=== PATIENT | male | born 1955 | race Caucasian/White ===

== ENCOUNTER 2017-02-06 23:06 | Observation (INO) | payer OTHER ==
[~2017-02-06] VITALS: Ht 172.7 cm; Wt 112.7 kg
[~2017-02-06 23:06] MED LIST: HYOS0.1281 SL; ONDA4TAB9 PO
[2017-02-06 23:08] VITALS: BP 135/81; PULSE 56; RESP 18; O2SAT 97
--- NOTE | 2017-02-06 23:20 | ED.REPORT ---
HPI-Abd Pain M 40 and Over Date of Service Feb 06, 2017 ED Provider: Charbel Hollis DO Pt is a 61 year old male with a history of HTN who presents to the ED complaining of upper abdominal pain onset 18:00 tonight. He c/o associated nausea, vomiting, and cold sweats. The pt denies denies diarrhea and cough. He reports that he has taken Pepcid and 7up without relief. Nursing Notes Stated Complaint: VOMITING,STOMACH PAIN Chief Complaint: Male Abdominal Pain Nursing Notes Reviewed: Yes Allergies: Coded Allergies: No Known Allergies (Unverified , 02/06/17) Scheduled Hyoscyamine SL (Levsin SL) 0.125 Mg Tab.subl 0.125 MG SL TID Scheduled PRN Ondansetron ODT (Zofran ODT) 4 Mg Tablet 4 MG PO Q4H PRN PRN For Nausea General Time Seen by MD: 23:19 Chief Complaint Abdominal pain Hx Obtained From: Patient Arrived By: Walk-in Sudden in Onset?: No Onset Occurred: 5 - 8 hours ago Symptom Duration: Since onset Location: : Abdomen upper Quality: Painful Severity: Current: Moderate Severity: Maximum: Moderate Recent Healthcare: No recent doctor visit, No recent hospitalization Similar Sx Previous: Yes Past Medical History Past Medical History Reports: Hypertension Past Surgical History Denies Smoking History Never Smoker Social History Alcohol Use: Denies alcohol use Ambulatory Status Independent Review of Systems + Cold sweats Constitutional: Denies: Fever Respiratory: Denies: Non-productive cough, Shortness of breath GI: Reports: Abdominal pain, Nausea, Vomiting, Denies: Diarrhea Complete sys rev & neg: except as marked. Skin: Reports Diaphoresis Physical Exam Initial Vital Signs Vital Signs (First) Date Time Temp Pulse Resp B/P Pulse Ox O2 Delivery O2 Flow Rate FiO2 02/06/17 23:08 36 56 18 135/81 97 Room Air Initial VS: Reviewed ENT: Mucous membranes moist, Conjunctiva normal, No scleral icterus Neck: Supple, Full range of motion Extremities: Vascular intact, Neuro intact Neurologic: Alert, Oriented, Nonfocal Psychiatric: Mood/affect normal, Behavior normal, Normal thought content General/Constitutional: Awake, Alert, Cooperative Distress / Hydration: Positive: Distress moderate Respiratory / Chest: Atraumatic, Breath sounds NL, Breath sounds = bilat Cardiovascular: Heart rate NL, Regular rhythm, Heart sounds NL Abdomen: Atraumatic, Soft, No guarding, No rebound Tenderness/Guarding/Rebound: Positive: Tender diffuse Back: Atraumatic, Full range of motion Skin: Atraumatic, Color NL, Warm, Dry, Intact Well perfused. Interpretation & Diagnostics Lab Results Interpretation Result Diagram: 02/06/17 2355 02/06/17 2355 Test 02/06/17 23:54 02/06/17 23:55 Lactic Acid Level 1.3mmol/L (0.4-2.0) White Blood Count 12.3th/mm3 (3.8-10.1) Red Blood Count 4.61mil/mm3 (4.40-5.80) Hemoglobin 14.9g/dL (13.8-17.2) Hematocrit 43.0% (41.0-50.0) Mean Corpuscular Volume 93.3fL (81-100) Mean Corpuscular Hemoglobin 32.3pg (27.0-35.0) Mean Corpuscular Hemoglobin Concent 34.7% (32.0-37.0) Red Cell Distribution Width 12.1% (12.3-15.4) Platelet Count 180bil/L (150-400) Neutrophils (%) (Auto) 79.5% (40-74) Lymphocytes (%) (Auto) 14.2% (14-46) Monocytes (%) (Auto) 4.8% (4-12) Eosinophils (%) (Auto) 1.1% (0-5) Basophils (%) (Auto) 0.2% (0-3) Prothrombin Time 10.9sec (8.1-12.5) Prothromb Time International Ratio 1.02ratio Sodium Level 138mEq/L (134-144) Potassium Level 4.0mEq/L (3.5-5.2) Chloride Level 102mEq/L (97-108) Carbon Dioxide Level 21mmol/L (18-29) Blood Urea Nitrogen 21mg/dL (8-27) Creatinine 0.87mg/dL (0.76-1.27) Estimat Glomerular Filtration Rate 95mL/min (>59) Glucose Level 159mg/dL (60-99) Calcium Level 9.6mg/dL (8.5-10.1) Magnesium Level 2.0mg/dL (1.6-2.6) Total Bilirubin 0.6mg/dL (0.0-1.2) Aspartate Amino Transf (AST/SGOT) 16U/L (0-50) Alanine Aminotransferase (ALT/SGPT) 15U/L (0-44) Alkaline Phosphatase 53U/L (25-160) Troponin T < 0.010ug/L (0.0-0.011) Total Protein 7.5g/dL (6.4-8.4) Albumin 4.2g/dL (3.4-5.0) Lipase 17U/L (13-60) ECG Interpretation ECG Interpretation: Sinus rhythm with a rate of 66. Probable left atrial enlargement. Time: 00:04 Interpreted by: ED physician CBC Interpretation WBC elevated BMP / CMP Interpretation BMP/CMP normal Cardiac / Vascular Interp Troponin normal X-Ray Abdominal Interpretation Interpretation / Wet Read by: Interpret - ED physician CT Abd / Pelvis Interpretation CT scan shows bowel wall thickening of the splenic flexure consistent with mild colitis. There is also fluid within the small bowel most likely representing enteritis. No obvious signs of bowel obstruction. Study type: Abdominal CT IV contrast Interpretation / Wet Read by: Interpret - Radiologist NL CT Abdomen Findings: No mass, No free fluid, No free air, No bowel obstruction Re-Eval/Medical Decision Med Decision/Clinical Course At 2:03 AM Mr. Soria is still rather miserable. He is having ongoing nausea and intermittent waves of pain. His abdomen is soft and much less tender but he does not feel comfortable being discharged home. He has a leukocytosis and a CT scan worrisome for colitis and possible enteritis. As such I will admit him to the hospital for close observation I think if he produces diarrhea which she tested for C. difficile otherwise clear liquid diet fluid resuscitation and symptomatic care. Consulted with our hospitalist and he was accepted for admission Source of Hx: Old records Time of Eval: 01:59 )( Re-Eval Abdomen: Soft Re-Evaluation/Progress Note: Pt rechecked. He has ongoing pain and wants to be admitted. Informed pt of plan for admission. Pt understands and agrees with plan for admission. All questions addressed. Consultation : Referral / Consult Name: Lyle Ty MD Consulted With: Hospitalist Call Returned at: 02:00 [employer] Supervisor: Will see patient, Agrees with eval, Agrees with plan, Accepts admit Counseled Regarding: Diagnosis, Lab results, Need for admission Discharge & Departure Shift Change Sign-Out Response to Therapy: Improved Primary Impression: Colitis Additional Impressions: Intractable abdominal pain Vomiting Vomiting type: unspecified Vomiting Intractability: unspecified Nausea presence: with nausea Qualified Code: R11.2 - Nausea with vomiting, unspecified Disposition: ADMITTED TO HOSPITAL Vital Signs - All Vital Signs Date Time Temp Pulse Resp B/P Pulse Ox O2 Delivery O2 Flow Rate FiO2 02/06/17 23:08 36 56 18 135/81 97 Room Air )( All Prior VS Reviewed: Yes Condition: Stable Referrals: Shahid Nguyen MD (PCP) Scribe Attestation Portions of this note were transcribed by Whitney Russo. I, Dr. Hollis personally performed the history, physical exam and medical decision-making; I reviewed and confirmed the accuracy of the information in the transcribed note. Signed by: Amanda Almanza, 02/07/17 and 01:05 copies to: Shahid Nguyen MD, Todd P DO Feb 06, 2017 23:20 Whitney Lai Feb 06, 2017 23:29
[2017-02-06] MEDS ORDERED: 0.9% Sodium Chloride 1,000 ML IV ONE (23:22)
[2017-02-06] MEDS ORDERED: Ondansetron 2 mg/mL 2 mL Inj IVPUSH ONE (23:25)
[2017-02-06] MEDS ORDERED: Ondansetron 2 mg/mL 2 mL Inj IVPUSH PRN (23:25)
[2017-02-06] MEDS ORDERED: Pantoprazole 4 mg/mL 10 mL Inj IVPUSH ONE (23:25)
[2017-02-06] MEDS: HYDROmorphone 1 mg/mL Inj IVPUSH PRN (23:59)
[2017-02-07 00:18] LABS: BASOPHILS % (AUTO) 0.2 % (0-3); EOSINOPHILS % (AUTO) 1.1 % (0-5); MONOCYTES % (AUTO) 4.8 % (4-12); Mean Corpuscular Hemoglobin 32.3 pg (27.0-35.0); Mean Corpuscular Volume 93.3 fL (81-100); NEUTROPHILS % (AUTO) 79.5 % (40-74); Platelet Count 180 bil/L (150-400)
[2017-02-07 00:38] LABS: INR 1.02 ratio
[2017-02-07] MEDS: HYDROmorphone 1 mg/mL Inj IVPUSH PRN (01:29)
[2017-02-07] MEDS ORDERED: Alum-Mag Hydrox-Simeth 30 mL Suspension PO PRN (02:35)
[2017-02-07] MEDS ORDERED: Polyethylene Glycol (PEG) 17 Gm Powder PO PRN (02:35)
[2017-02-07] MEDS ORDERED: HYDROmorphone 0.5 mg/0.5 mL iSecure Syringe IVPUSH PRN (02:35)
[2017-02-07] MEDS ORDERED: Ondansetron 2 mg/mL 2 mL Inj IVPUSH PRN (02:35)
[2017-02-07] MEDS: Heparin 5,000 Unit/mL Inj SUBQ SCH ×3 (02:35→17:18)
--- NOTE | 2017-02-07 02:50 | PCM.HPMED ---
Subjective Date of Service Feb 07, 2017 Primary Provider: Admitting Physician: Lyle Ty MD Primary Care Physician: Shahid Nguyen MD Attending Physician: Lyle Ty MD Chief Complaint: Acute abdominal pain, nausea vomiting History of Present Illness: Tito Soria Junior is an obese 61-year-old gentleman with history of hypertension , currently not on any medications, presents with abrupt onset of epigastric abdominal pain around 1800 yesterday evening. They complain of nausea, vomiting 1 without hematochezia, chills and cold sweats. He denies any diarrhea cough, history of same, contacts with similar symptoms. He is suspicious that his lunch may be the cause of his symptoms which was roast pork , however no one else has had it has had symptoms. He attempted to take Pepcid , and drinks 7-Up did not offer any relief. Setting was the abdominal pain worsening that prompted him to come to the emergency department. He is anorexic for dinner. Denies any rashes, constipation, last bowel movement was earlier today which he describes as normal. No recent antibiotics Vitals in the emergency department were temperature 36 Celsius, heart rate 56, respirations 18, blood pressure 135/81, 97 percent on room air Mild leukocytosis, 12.3. Blood glucose 159 EKG: Rate 66, sinus rhythm, normal axis, QTC 446, no signs of acute ischemia or infarct, no AV conduction delay CT scan was performed of his abdomen and was concerning for colitis and possible enteritis, collapse of his colon is demonstrated at his splenic flexure , and no stool or gas visualized distal to it. Findings were discussed with the patient and ultimately said he feels safer coming into the hospital as he was frightened that he had abdominal pain and was unsure what happened if he were to go back home. He is given IV Dilaudid in the emergency department which improved his abdominal pain symptoms. Review of Systems: A comprehensive review of systems was conducted with the patient and found to be negative except as above in the history of presenting illness. Allergies Coded Allergies: No Known Allergies (Unverified , 02/06/17) Home Medications Denies any medications PMH History of hypertension, says he no longer has it Obesity Surgical History Tonsillectomy in childhood Family History States he did not know his parents well enough to know their medical history Has brothers and sisters but they do not discuss their health. Social History Occupation: "retired from the [employer]" Hx Alcohol Use: No Hx Substance Use: No Smoking Status: Never Smoker Living Arrangement: with Family Exam Vital Signs Vital Sign - Last Date Time Temp Pulse Resp B/P Pulse Ox O2 Delivery O2 Flow Rate FiO2 02/06/17 23:08 36 56 18 135/81 97 Room Air Intake and Output 02/06/17 02/06/17 02/07/17 Cumulative From/Thru 15:00 23:00 07:00 02/06/17 23:08 - 02/06/17 23:59 Intake Total 1000 ml 1000 ml Balance 1000 ml 1000 ml Intake IV Total 1000 ml 1000 ml Exam General: Laying in bed, no apparent distress. Pleasant affect HEENT: Normocephalic, atraumatic, EOMI grossly, pupils 2 mm fixed, mucous membranes moist, poor dentition, neck supple without lymphadenopathy, conjunctiva pink. Cardiovascular: Regular rate and rhythm, no clicks murmurs rubs, peripheral pulses 2/4 equal bilaterally Pulmonary: Clear to auscultation bilaterally, no W/R/R. Abdominal: Soft to palpation, bowel sounds present 4, no hepatosplenomegaly. Negative rebound. Small area of ecchymosis 2 inches superior to umbilicus, mild tenderness to epigastrium and left upper quadrant, no Cle[place] Gaffney or [place] sign, negative CVA tenderness. Abdomen is rotund dullness to percussion left quadrants. Extremities: No edema appreciated. No tenderness, asymmetry. Neuro: Neurologically grossly intact, strength is equal bilaterally upper and lower extremities. Cranial nerves II-12 grossly intact. Patellar reflexes 1/4 equal bilaterally MSK: Able to move extremities on his own volition, strength 5 out of 5 equal bilaterally to upper and lower extremities. Lab and Diagnostics Result Diagram: 02/06/17 2355 02/06/17 2355 X-Rays, CTs and MRIs Abdominal pelvis CT performed 02/06/2017 CT scan shows bowel wall thickening of the splenic flexure consistent with mild colitis. There is also fluid within the small bowel most likely representing enteritis. No obvious signs of bowel obstruction. [facility] and emergency physician interpretation 12-lead ECG EKG: Rate 66, sinus rhythm, normal axis, QTC 446, no signs of acute ischemia or infarct, no AV conduction delay Assessment & Plan Mr. Soria Edward 61-year-old gentleman with history of hypertension, obesity, presents with acute abdominal pain, nausea and vomiting, radiographic evidence of colitis and enteritis. Acute colitis and enteritis, present on admission, evaluation ongoing. -As evidenced on abdominal pelvis CT, leukocytosis with left shift. -Lactic acid normal, lipase negative. -Pain management with IV hydromorphone, oral Tylenol -If bowel movement is loose or developing diarrhea, test for C. difficile toxin -Clear liquids diet -Monitor for signs/symptoms of bowel obstruction -currently euvolemic, IV fluids when necessary for signs of dehydration, PO challenge in the morning. -Reevaluate CBC CMP tomorrow morning Elevated blood glucose, presumed chronic, does not on admission -Serum glucose 159 after not eating since roughly 6 PM, nearly 6 hours postprandial. -Evaluate A1c for diabetes Elevated blood pressure POA. Stable -135/81, placed in the pre-hypertensive range, stated history of hypertension. -We will continue to monitor Chronic Obesity, BMI 37, POA -Dietitian consultation Bowel regimen as indicated in Pain management hydromorphone IV, Tylenol by mouth DVT prophylaxis with subcutaneous heparin Patient admitted under inpatient status with expected length of stay <2 midnights for severity of present symptoms, complexities of treatment plan and risk for adverse events Pain Evaluation: Adequate Pain Control GI Prophylaxis: Not indicated VTE Prophylaxis: Sub-Q Heparin (Unfractionated) Resuscitation Status: CPR: Attempt Resuscitation Attending Statement The patient was seen and examined together with Dr. Mckeon on 02/07 and I agree with the history, exam and plan as outlined in the note above. Kendall Vazquez DO Feb 07, 2017 02:50 Lyle Ty MD Feb 07, 2017 19:32
[2017-02-07 02:56] VITALS: BP 152/98; PULSE 68; RESP 18; O2SAT 97
[2017-02-07 03:08] VITALS: BP 150/87; PULSE 64; RESP 20; O2SAT 96
--- NOTE | 2017-02-07 03:42 | NUR ---
Arrival to unit Patient arrived to floor at 0300 from ED via gurney. Patient A&OX3 and pleasant. Able to ambulate via SBA to the bathroom without troubles. Complains of 8/10 abdominal pain. Denies CP, SOB, N/V. Admission complete. Pt states only medication he takes is a multivitamin, but unable to verify name/dose; will share this with day shift so one can be ordered by MD. Will continue to monitor and continue Q1 hour checks. Addendum: 02/07/17 at 0348 by MUSHTAQ CASTRO RN Lab called to clarify lab order dates. Contacted hospitalist and able to clarify lab draws for this am 02/07/17.
[2017-02-07 03:44] LABS: APPEARANCE,URINE CLEAR (CLEAR,HAZY); COLOR,URINE YELLOW (YELLOW); OCCULT BLOOD,URINE NEGATIVE (NEGATIVE); UROBILINOGEN,URINE NORMAL (NORMAL)
[2017-02-07 04:43] VITALS: BP 131/77; PULSE 64; RESP 20; O2SAT 98
[2017-02-07 06:04] LABS: BASOPHILS % (AUTO) 0.2 % (0-3); EOSINOPHILS % (AUTO) 0.2 % (0-5); MONOCYTES % (AUTO) 6.1 % (4-12); Mean Corpuscular Hemoglobin 31.9 pg (27.0-35.0); Mean Corpuscular Volume 94.3 fL (81-100); NEUTROPHILS % (AUTO) 81.7 % (40-74); Platelet Count 179 bil/L (150-400)
--- NOTE | 2017-02-07 08:33 | DRSVH ---
PROCEDURE: CT ABDOMEN AND PELVIS WITH CONTRAST ([id number]) INDICATIONS: 61-year-old male with diffuse severe pain and vomiting. TECHNIQUE: After the administration of intravenous contrast, 5 mm thick sections acquired from the diaphragm to the symphysis. 5 mm coronal and sagittal reformats were acquired. For radiation dose reduction, the following was used: automated exposure control, adjustment of mA and/or kV according to patient siz e. COMPARISON: None. FINDINGS: Image quality: Excellent. ABDOMEN: Lung bases: Lung bases are clear. Heart size is normal. Solid organs: Liver and spleen are normal in size and enhancement. Gallbladder is normal. Biliary system is non dilated. Pancreas enhances normally. There is fatty infiltration in pancreatic head a n ossific process. No adrenal nodules. Kidneys demonstrate normal size and enhancement, without hydr onephrosis. There is a 3 cm simple appearing exophytic cyst in the inferior pole left kidney. Peritoneum and bowel: Stomach is mildly distended and filled with fluid. Bowel loops demonstrate nor mal wall thickness and caliber. There are scattered colonic diverticula. No active diverticulitis. A ppendix is normal. No free fluid or air. Nodes and vessels: No retroperitoneal or mesenteric adenopathy by size criteria. Aorta and inferior vena cava are normal in size. Miscellaneous: No ventral hernias. PELVIS: Genitourinary: Bladder wall thickness is normal. Miscellaneous: No inguinal adenopathy. Bilateral fat containing inguinal hernias. Bones: There is grade 1 anterolisthesis of L4 over L5. No suspicious bony lesions. No vertebral bod y compression fractures. IMPRESSION: 1. Fluid-filled mildly distended stomach. This finding is nonspecific. There is no small bowel obstru ction. 2. Diverticulosis. No active diverticulitis. 3. Normal appendix. 4. Fatty infiltration in pancreatic head. Please correlate with pancreatic enzymes. 5. A 3 cm simple appearing left renal cyst. Dictated by: Stacie Melchor M.D. on 02/07/2017 at 8:25 Approved by: Stacie Melchor M.D. on 02/07/2017 at 8:32
[2017-02-07] MEDS ORDERED: MULT1CAP33 PO (09:05)
[2017-02-07 09:43] VITALS: BP 119/77; PULSE 66; RESP 18; O2SAT 96
[2017-02-07 13:26] VITALS: BP 117/75; PULSE 81; RESP 16; O2SAT 99
--- NOTE | 2017-02-07 16:26 | NUR ---
Social Work- Screening/ Readiness for Discharge Data: EMR reviewed. Pt is a 61 year old male admitted 02/07/17 for intractable abdominal pain, colitis, vomiting per H&P. Pt's insurance is [employer]. Pt's PCP is Shahid Nguyen MD. Pt's NOK is Lorna Esteban [phone]. Per chart review, pt resides in [facility] with his where he is independent at baseline. Pt has no DPOA, refused information at admission. Pt is anticipated to discharge home with to transport via POV, SW will continue to follow. Assessment: Pt who is independent at baseline. Plan: Pt is independent at baseline. Pt is anticipated to discharge home with to transport via POV, SW will continue to follow. DEREK Sanchez
--- NOTE | 2017-02-07 16:42 | PCM.PNMED ---
Subjective Date of Service Feb 07, 2017 Subjective Patient is feeling better today. States his nausea has resolved but still has lower abdominal cramping. He is concerned about his not taking ehr lactulose. SAys they did not expect to get admitted thus, she did not bring her meds. Exam Vital Signs Vital Sign - Last Date Time Temp Pulse Resp B/P Pulse Ox O2 Delivery O2 Flow Rate FiO2 02/07/17 13:26 36.8 81 16 117/75 99 Room Air Intake and Output 02/06/17 02/06/17 02/07/17 Cumulative From/Thru 15:00 23:00 07:00 02/06/17 23:08 - 02/07/17 05:34 Intake Total 1000 ml 1000 ml Output Total 400 ml 400 ml Balance 600 ml 600 ml Intake Oral 0 ml 0 ml IV Total 1000 ml 1000 ml Output Urine Total 400 ml 400 ml # Bowel Movements 0 0 Exam General: Laying in bed, no apparent distress. Pleasant affect HEENT: Normocephalic, atraumatic, EOMI grossly, mucous membranes moist, poor dentition, conjunctiva pink. Cardiovascular: Regular rate and rhythm, no clicks murmurs rubs Pulmonary: Clear to auscultation bilaterally, no wheezes or crackles Abdominal:, bowel sounds present 4, no hepatosplenomegaly. Negative rebound. tenderness to palpation of lower abdomen. Abdomen is rotund dullness to percussion left quadrants. Extremities: No edema appreciated. No tenderness, asymmetry. Neuro: Neurologically grossly intact psych: Negative for anxiety IVs and Medications Medications Reviewed: Medications were reviewed in detail Lab and Diagnostics Result Diagram: 02/07/17 0530 02/07/17 0530 X-Rays, CTs and MRIs Abdominal pelvis CT performed 02/06/2017 CT scan shows bowel wall thickening of the splenic flexure consistent with mild colitis. There is also fluid within the small bowel most likely representing enteritis. No obvious signs of bowel obstruction. [facility] and emergency physician interpretation formal read: IMPRESSION: 1. Fluid-filled mildly distended stomach. This finding is nonspecific. There is no small bowel obstruction. 2. Diverticulosis. No active diverticulitis. 3. Normal appendix. 4. Fatty infiltration in pancreatic head. Please correlate with pancreatic enzymes. 5. A 3 cm simple appearing left renal cyst. Dictated by: Stacie Melchor M.D. on 02/07/2017 at 8:25 Approved by: Stacie Melchor M.D. on 02/07/2017 at 8:32 12-lead ECG EKG: Rate 66, sinus rhythm, normal axis, QTC 446, no signs of acute ischemia or infarct, no AV conduction delay Assessment & Plan Mr. Yang Leon 61-year-old gentleman with history of hypertension, obesity, presents with acute abdominal pain, nausea and vomiting, radiographic evidence of colitis and enteritis. Acute colitis and enteritis, present on admission: Started after eating pot roast -As evidenced on abdominal pelvis CT, leukocytosis with left shift. -Lactic acid normal, lipase negative. -Pain management with IV morphine, oral Tylenol -If bowel movement is loose or developing diarrhea, test for C. difficile toxin -Diet is advanced to full liquids -Monitor for signs/symptoms of bowel obstruction -Reevaluate CBC CMP tomorrow morning -I have discussed with him the possibility of pain returning if he starts eating and does not tolerate the diet. He chose to stay tonight because he is afraid pain willc ome back. -- He stated his nephew can likely bring his 's medication to the hospital. Elevated blood glucose, presumed chronic, does not on admission -Serum glucose 159 after not eating since roughly 6 PM, nearly 6 hours postprandial. -Evaluate A1c for diabetes Elevated blood pressure POA. Stable -135/81, placed in the pre-hypertensive range, stated history of hypertension. -We will continue to monitor Chronic Obesity, BMI 37, POA -Dietitian consultation Bowel regimen as indicated in Pain management hydromorphone IV, Tylenol by mouth DVT prophylaxis with subcutaneous heparin Patient admitted under inpatient status with expected length of stay <2 midnights for severity of present symptoms, complexities of treatment plan and risk for adverse events Pain Evaluation: Adequate Pain Control GI Prophylaxis: Not indicated VTE Prophylaxis: Sub-Q Heparin (Unfractionated) VTE Mechanical Devices: Intermittant Pneumatic CD Resuscitation Status: CPR: Attempt Resuscitation Time spent 25 min Samantha iWseman DO Feb 07, 2017 16:42
--- NOTE | 2017-02-07 18:13 | NUR ---
Asking about discharge Pt has been getting anxious about going home. He is more concerned about his missing her meds at this time. Pt feels like he is just fine and "probably just ate something bad" MD is aware. Pt agrees to stay tonight and be discharged tomorrow.
[2017-02-07 20:18] VITALS: BP 127/79; PULSE 68; RESP 18; O2SAT 99
[2017-02-08] MEDS: Heparin 5,000 Unit/mL Inj SUBQ SCH ×2 (01:07→08:03)
[2017-02-08 05:39] LABS: Mean Corpuscular Hemoglobin 32.6 pg (27.0-35.0); Mean Corpuscular Volume 93.6 fL (81-100)
[2017-02-08 05:52] VITALS: BP 135/83; PULSE 68; RESP 20; O2SAT 98
[2017-02-08 07:44] VITALS: BP 144/85; PULSE 73; RESP 18; O2SAT 96
--- NOTE | 2017-02-08 09:35 | PCM.DIMED ---
Discharge Instructions Date of Service Feb 08, 2017 Dates of Hospitalization Feb 07, 2017 at 02:33 Discharge Diagnosis Discharge Diagnosis Enterocolitis due to food intolerance Diet Discharge Diet: No restrictions Activity Discharge Activity: No restrictions Call your provider Call your provider for: Fever or Chills, Shortness of breath, Bleeding, Chest pain, Vomitting, Excessive diarrhea, Weakness (unilateral), Other Patient Instructions Follow-up plan Please se e your PCP in 2 weeks Samantha Wiseman DO Feb 08, 2017 07:37
--- NOTE | 2017-02-08 09:42 | PCM.DC.MED ---
Discharge Summary Date of Service Feb 08, 2017 Dates of Hospitalization Date of Hospital Admission Feb 07, 2017 at 02:33 Date of Discharge: Feb 08, 2017 Providers: Admitting Physician: Lyle Ty MD Primary Care Physician: Shahid Nguyen MD Attending Physician: Lyle Ty MD Diagnosis at Time of Discharge Diagnosis at Time of Discharge Enterocolitis due to food intolerance Consultations None Procedures XRay, CTs & MRIs Abdominal pelvis CT performed 02/06/2017 CT scan shows bowel wall thickening of the splenic flexure consistent with mild colitis. There is also fluid within the small bowel most likely representing enteritis. No obvious signs of bowel obstruction. [facility] and emergency physician interpretation formal read: IMPRESSION: 1. Fluid-filled mildly distended stomach. This finding is nonspecific. There is no small bowel obstruction. 2. Diverticulosis. No active diverticulitis. 3. Normal appendix. 4. Fatty infiltration in pancreatic head. Please correlate with pancreatic enzymes. 5. A 3 cm simple appearing left renal cyst. Dictated by: Stacie Melchor M.D. on 02/07/2017 at 8:25 Approved by: Stacie Melchor M.D. on 02/07/2017 at 8:32 ECG 12 Lead EKG: Rate 66, sinus rhythm, normal axis, QTC 446, no signs of acute ischemia or infarct, no AV conduction delay Brief History Tito Soria Junior is an obese 61-year-old gentleman with history of hypertension , currently not on any medications, presents with abrupt onset of epigastric abdominal pain around 1800 yesterday evening. They complain of nausea, vomiting 1 without hematochezia, chills and cold sweats. He denies any diarrhea cough, history of same, contacts with similar symptoms. He is suspicious that his lunch may be the cause of his symptoms which was roast pork , however no one else has had it has had symptoms. He attempted to take Pepcid , and drinks 7-Up did not offer any relief. Setting was the abdominal pain worsening that prompted him to come to the emergency department. He is anorexic for dinner. Denies any rashes, constipation, last bowel movement was earlier today which he describes as normal. No recent antibiotics Vitals in the emergency department were temperature 36 Celsius, heart rate 56, respirations 18, blood pressure 135/81, 97 percent on room air Mild leukocytosis, 12.3. Blood glucose 159 EKG: Rate 66, sinus rhythm, normal axis, QTC 446, no signs of acute ischemia or infarct, no AV conduction delay CT scan was performed of his abdomen and was concerning for colitis and possible enteritis, collapse of his colon is demonstrated at his splenic flexure , and no stool or gas visualized distal to it. Findings were discussed with the patient and ultimately said he feels safer coming into the hospital as he was frightened that he had abdominal pain and was unsure what happened if he were to go back home. He is given IV Dilaudid in the emergency department which improved his abdominal pain symptoms. Hospital Course Mr. Yang Leon 61-year-old gentleman with history of hypertension, obesity, presents with acute abdominal pain, nausea and vomiting, radiographic evidence of colitis and enteritis. Acute colitis and enteritis, present on admission: Started after eating pot roast -As evidenced on abdominal pelvis CT, leukocytosis with left shift: non-sp fluid per formal read -Lactic acid normal, lipase negative. -Pain management with IV morphine, oral Tylenol: Not needing much pain medication -Monitor for signs/symptoms of bowel obstruction: Patient is not nauseated, tolerating diet -I have discussed with him the possibility of pain returning if he starts eating and does not tolerate the diet. He chose to stay on 02/07 because he is afraid pain will come back. -He stated his nephew can likely bring his 's medication to the hospital. -On the date of discharge, pt is feeling better, not needing pain medication, tolerating normal diet. Elevated blood glucose, presumed chronic, DM 2 r/o -Serum glucose 159 after not eating since roughly 6 PM, nearly 6 hours postprandial. -Evaluate A1c for diabetes:reviewed, non-diabetic A1c<6.5 Elevated blood pressure POA. Stable, not currently meet HTN dx -135/81, placed in the pre-hypertensive range, stated history of hypertension. -We will continue to monitor -- We request that the PCP follows up on this Chronic Obesity, BMI 37, POA -Dietitian consultation DVT prophylaxis with subcutaneous heparin Patient admitted under inpatient status with expected length of stay <2 midnights for severity of present symptoms, complexities of treatment plan and risk for adverse events Exam Vital Signs (Last) Date Time Temp Pulse Resp B/P Pulse Ox O2 Delivery O2 Flow Rate FiO2 02/08/17 07:44 36.7 73 18 144/85 96 Room Air Exam General: Laying in bed, no apparent distress. Pleasant affect HEENT: Normocephalic, atraumatic, EOMI grossly, mucous membranes moist, poor dentition, conjunctiva pink. Cardiovascular: Regular rate and rhythm, no clicks murmurs rubs Pulmonary: Clear to auscultation bilaterally, no wheezes or crackles Abdominal:, bowel sounds present 4, no hepatosplenomegaly. Negative rebound. Non-tender to palpation of abdomen. Extremities: No edema appreciated. No tenderness, asymmetry. Neuro: Neurologically grossly intact psych: Negative for anxiety Test 02/06/17 23:54 02/06/17 23:55 02/07/17 03:20 02/07/17 05:30 Lactic Acid Level 1.3mmol/L (0.4-2.0) Prothrombin Time 10.9sec (8.1-12.5) Prothromb Time International Ratio 1.02ratio Hemoglobin A1c 5.5% (4.8-5.6) Magnesium Level 2.0mg/dL (1.6-2.6) Troponin T < 0.010ug/L (0.0-0.011) Lipase 17U/L (13-60) Urine Color Yellow (YELLOW) Urine Appearance Clear (CLEAR,HAZY) Urine pH 5.0 (5.0-8.0) Urine Specific [place] 1.056 (1.003-1.035) Urine Protein Negativemg/dL (NEG,TRACE) Urine Glucose (UA) Negativemg/dL (NEGATIVE) Urine Ketones Negativemg/dL (NEGATIVE) Urine Occult Blood Negative (NEGATIVE) Urine Nitrite Negative (NEGATIVE) Urine Bilirubin Negative (NEGATIVE) Urine Urobilinogen Normalmg/dL (NORMAL) Urine Leukocyte Esterase Negative (NEGATIVE) Urine RBC 0-2/hpf (0-2) Urine WBC 0-5/hpf (0-5) Urine Epithelial Cells Occasional/hpf (NONE-MOD) Urine Crystals None seen (NONE SEEN) Urine Bacteria None/hpf (NONE-FEW) Urine Hyaline Casts None/lpf (NONE) Urine Granular Casts None seen (NONE SEEN) Urine Waxy Casts None seen (NONE SEEN) Urine Red Blood Cell Casts None seen (NONE SEEN) Urine White Blood Cell Casts None seen (NONE SEEN) Urine Mucus Present (None Seen) Urine Trichomonas None seen (NONE SEEN) Urine Yeast None (NONE SEEN) Urine Culture Reflexed Not indicated Neutrophils (%) (Auto) 81.7% (40-74) Lymphocytes (%) (Auto) 11.7% (14-46) Monocytes (%) (Auto) 6.1% (4-12) Eosinophils (%) (Auto) 0.2% (0-5) Basophils (%) (Auto) 0.2% (0-3) Total Bilirubin 0.9mg/dL (0.0-1.2) Aspartate Amino Transf (AST/SGOT) 22U/L (0-50) Alanine Aminotransferase (ALT/SGPT) 21U/L (0-44) Alkaline Phosphatase 52U/L (25-160) Total Protein 6.8g/dL (6.4-8.4) Albumin 4.0g/dL (3.4-5.0) Triglycerides Level 38mg/dL (0-149) Cholesterol Level 146mg/dL (100-199) LDL Cholesterol, Calculated 87.400mg/dL (0-99) VLDL Cholesterol 7.600mg/dL HDL Cholesterol 51mg/dL (>39) Cholesterol/HDL Ratio 2.86 (0.0-4.4) Test 02/08/17 04:50 White Blood Count 8.0th/mm3 (3.8-10.1) Red Blood Count 4.38mil/mm3 (4.40-5.80) Hemoglobin 14.3g/dL (13.8-17.2) Hematocrit 41.0% (41.0-50.0) Mean Corpuscular Volume 93.6fL (81-100) Mean Corpuscular Hemoglobin 32.6pg (27.0-35.0) Mean Corpuscular Hemoglobin Concent 34.9% (32.0-37.0) Red Cell Distribution Width 12.3% (12.3-15.4) Platelet Count 157bil/L (150-400) Sodium Level 138mEq/L (134-144) Potassium Level 3.9mEq/L (3.5-5.2) Chloride Level 104mEq/L (97-108) Carbon Dioxide Level 24mmol/L (18-29) Blood Urea Nitrogen 11mg/dL (8-27) Creatinine 0.68mg/dL (0.76-1.27) Estimat Glomerular Filtration Rate 126mL/min (>59) Glucose Level 113mg/dL (60-99) Calcium Level 9.5mg/dL (8.5-10.1) Discharge Medications As needed oxyCODONE-Acetaminophen 5-325 mg (oxyCODONE-Acetaminophen 5-325 mg) 1 Each Tablet 1 TAB PO Q6H PRN PRN For Pain Prescribed by: BEATA ZAPATA MD Miscellaneous Medications Multivitamin (Multivitamins) 1 Each Capsule 1 EACH PO (Reported) Followup Plan Follow-up plan Please se e your PCP in 2 weeks Discharge Diet: No restrictions Discharge Activity: No restrictions Time spent > 30 min Samantha Wiseman DO Feb 08, 2017 09:42
--- NOTE | 2017-02-08 11:04 | NUR ---
Social Work- Discharge Data: EMR reviewed. Pt is a 61 year old male admitted 02/07/17 for intractable abdominal pain, colitis, vomiting per H&P. Pt's discharge orders are active. SW met with pt at bedside regarding discharge, pt is agreeable to discharge. Pt states that his will transport him home. Pt denies any questions or concerns related to discharge. Pt confirmed he will discharge home with to transport via POV. Assessment: Pt who is independent at baseline. Plan: Pt is independent at baseline. Pt to discharge home with to transport via POV. Juany Sanders, [employer]
--- NOTE | 2017-02-08 13:32 | NUR ---
Status MD notified that pt tolerated general diet lunch without n/v or pain. Ate 75%. Stable and w/o complaints at this time.
--- NOTE | 2017-02-08 14:05 | NUR ---
Discharge Pt dc'd ambulatory with at 1404. All discharge paperwork and instructions reviewed and pt verbalized understanding. All belongings with pt. IV dc'd w/o complication.
[2017-02-09] MEDS ORDERED: OXYC1TAB24 PO (08:21)
== END 2017-02-08 14:04 | disposition home or self-care (01) ==
LOC: SED 23:06 → OSC 02-07 02:33 → INTOOBSV 02-07 02:33
PROVIDERS: ADMIT Hospitalist; ATTEND Hospitalist
DX: K52.9 Noninfective gastroenteritis and colitis, unspecified (principal); K90.49 Malabsorption due to intolerance, not elsewhere classified; R73.9 Hyperglycemia, unspecified; R11.2 Nausea with vomiting, unspecified; E66.9 Obesity, unspecified; R10.13 Epigastric pain; I10 Essential (primary) hypertension; Z68.37 Body mass index [BMI] 37.0-37.9, adult
CPT/HCPCS: 36415; 74177; 80048; 80053; 80061; 81000; 83036; 83605; 83690; 83735; 84484; 85025; 85027; 85610; 93005; 96361; 96374; 96375; 96376; 99285; G0378; J1170; J1644; J2405; J7030; Q9967

== ENCOUNTER 2017-02-09 03:21 | Emergency (ER) | payer OTHER ==
[~2017-02-09] VITALS: Ht 172.7 cm; Wt 111.4 kg
[~2017-02-09 03:21] MED LIST changes: -HYOS0.1281 SL; +MULT1CAP33 PO; -ONDA4TAB9 PO
[2017-02-09 03:26] VITALS: BP 134/97; PULSE 74; RESP 18; O2SAT 98
--- NOTE | 2017-02-09 03:41 | ED.REPORT ---
HPI-Abd Pain M 40 and Over Date of Service Feb 09, 2017 ED Provider: Dr. Schreiber Pt is a 61 year old male with a hx of HTN presenting to the ED complaining of severe abdominal pain and nausea onset last night. Pt was discharged from the hospital yesterday with colitis. Associated symptoms include nausea and abdominal distention. Denies diarrhea, constipation, vomiting, or any other symptoms at this time. Nursing Notes Stated Complaint: ABDOMINAL PAIN, NAUSEA Chief Complaint: Male Abdominal Pain Nursing Notes Reviewed: Yes Allergies: Coded Allergies: No Known Allergies (Unverified , 02/06/17) Miscellaneous Medications Multivitamin (Multivitamins) 1 Each Capsule 1 EACH PO General Time Seen by MD: 03:41 Chief Complaint Abdominal pain Hx Obtained From: Patient Arrived By: Walk-in Sudden in Onset?: No Onset Occurred: Yesterday Symptom Duration: Since onset Progression since Onset: Constant Location: : Diffuse Quality: Painful Severity: Current: Severe Severity: Maximum: Severe Recent Healthcare: Recent doctor visit, Recent hospitalization Similar Sx Previous: Yes Past Medical History Past Medical History Reports: Hypertension Past Surgical History Denies Smoking History Never Smoker Social History Alcohol Use: Denies alcohol use Ambulatory Status Independent Review of Systems Constitutional: Denies: Weakness - generalized Respiratory: Denies: Wheezing GI: Reports: Abdominal pain, Nausea, Denies: Constipation, Diarrhea, Vomiting Complete sys rev & neg: except as marked. Physical Exam Initial Vital Signs Vital Signs (First) Date Time Temp Pulse Resp B/P Pulse Ox O2 Delivery O2 Flow Rate FiO2 02/09/17 03:26 36.4 74 18 134/97 98 Room Air Initial VS: Reviewed, Vital signs abnormal Head / Eyes: Atraumatic, Normocephalic, PERRL ENT: Mucous membranes moist, Conjunctiva normal, No scleral icterus Extremities: Vascular intact, Neuro intact, No swelling, No tenderness Skin: Warm, Dry, No cyanosis Neurologic: Alert, Oriented, Nonfocal Psychiatric: Mood/affect normal, Behavior normal, Normal thought content General/Constitutional: Awake, Alert Distress / Hydration: Positive: Distress moderate (Secondary to pain) Respiratory / Chest: Atraumatic, Breath sounds NL, Breath sounds = bilat, No respiratory distress, No rales, No rhonchi, No wheezing Cardiovascular: Heart rate NL, Regular rhythm, Heart sounds NL, Peripheral circulation NL Abdomen: Atraumatic, No distention Tenderness/Guarding/Rebound: Positive: Tender diffuse No tympany Back: Atraumatic, Inspection NL, Full range of motion Interpretation & Diagnostics Interpretation & Diagnostics: URINE DIP: SP GRAVITY:1.020 pH:5 LEUKOCYTES:- NITRITES:- PROTEIN:- GLUCOSE:NORMAL KETONES:++ UROBILINOGEN:NORMAL BILIRUBIN:- BLOOD:TRACE Lab Results Interpretation Result Diagram: 02/09/17 0355 02/09/17 0355 Test 02/09/17 03:55 White Blood Count 10.1th/mm3 (3.8-10.1) Red Blood Count 4.38mil/mm3 (4.40-5.80) Hemoglobin 14.2g/dL (13.8-17.2) Hematocrit 40.8% (41.0-50.0) Mean Corpuscular Volume 93.2fL (81-100) Mean Corpuscular Hemoglobin 32.4pg (27.0-35.0) Mean Corpuscular Hemoglobin Concent 34.8% (32.0-37.0) Red Cell Distribution Width 12.0% (12.3-15.4) Platelet Count 176bil/L (150-400) Neutrophils (%) (Auto) 75.8% (40-74) Lymphocytes (%) (Auto) 14.4% (14-46) Monocytes (%) (Auto) 7.6% (4-12) Eosinophils (%) (Auto) 1.7% (0-5) Basophils (%) (Auto) 0.2% (0-3) Sodium Level 136mEq/L (134-144) Potassium Level 4.1mEq/L (3.5-5.2) Chloride Level 100mEq/L (97-108) Carbon Dioxide Level 23mmol/L (18-29) Blood Urea Nitrogen 12mg/dL (8-27) Creatinine 0.67mg/dL (0.76-1.27) Estimat Glomerular Filtration Rate 129mL/min (>59) Glucose Level 134mg/dL (60-99) Lactic Acid Level 0.8mmol/L (0.4-2.0) Calcium Level 9.6mg/dL (8.5-10.1) Magnesium Level 1.8mg/dL (1.6-2.6) Total Bilirubin 1.5mg/dL (0.0-1.2) Aspartate Amino Transf (AST/SGOT) 16U/L (0-50) Alanine Aminotransferase (ALT/SGPT) 19U/L (0-44) Alkaline Phosphatase 53U/L (25-160) Total Protein 7.7g/dL (6.4-8.4) Albumin 4.0g/dL (3.4-5.0) Lipase 14U/L (13-60) Lab values outside NL range: no clinical significance. Re-Eval/Medical Decision Med Decision/Clinical Course Readmission for abdominal pain. Unremarkable labs but continued pain, so repeat CT scan was done. Care turned over to Dr. Jeffries at change of shift. Time of Eval: 05:20 Patient Status: Condition improved Re-Evaluation/Progress Note: Discussed results and plan for repeat CT. Pt understands and agrees. Counseled Regarding: Diagnosis, Lab results, Need for follow-up, When/why to return to ED Discharge & Departure Primary Impression: Intractable abdominal pain Disposition: Home Vital Signs - All Vital Signs Date Time Temp Pulse Resp B/P Pulse Ox O2 Delivery O2 Flow Rate FiO2 02/09/17 03:26 36.4 74 18 134/97 98 Room Air )( All Prior VS Reviewed: Yes Condition: Improved Referrals: Shahid Nguyen MD (PCP) Scribe Attestation Portions of this note were transcribed by Malia Zarate. I, Dr. Schreiber personally performed the history, physical exam and medical decision-making; I reviewed and confirmed the accuracy of the information in the transcribed note. Signed by: Amanda Philip, 02/09/17 and 0600. copies to: Shahid Nguyen MD, Howard L MD Feb 09, 2017 03:41 MALIA ZARATE Feb 09, 2017 03:47
[2017-02-09] MEDS ORDERED: 0.9% Sodium Chloride 1,000 ML IV ONE (03:46)
[2017-02-09] MEDS ORDERED: Ondansetron 2 mg/mL 2 mL Inj IVPUSH PRN (03:50)
[2017-02-09 04:09] LABS: BASOPHILS % (AUTO) 0.2 % (0-3); EOSINOPHILS % (AUTO) 1.7 % (0-5); MONOCYTES % (AUTO) 7.6 % (4-12); Mean Corpuscular Hemoglobin 32.4 pg (27.0-35.0); Mean Corpuscular Volume 93.2 fL (81-100); NEUTROPHILS % (AUTO) 75.8 % (40-74); Platelet Count 176 bil/L (150-400)
[2017-02-09] MEDS: HYDROmorphone 0.5 mg/0.5 mL iSecure Syringe IVPUSH PRN ×2 (04:25→07:06)
[2017-02-09 04:36] LABS: Magnesium 1.8 mg/dL (1.6-2.6)
[2017-02-09 07:00] VITALS: BP 142/91; PULSE 68; RESP 16; O2SAT 96
--- NOTE | 2017-02-09 07:21 | DRSVH ---
PROCEDURE: CT ABDOMEN AND PELVIS WITH CONTRAST ([id number]) INDICATIONS: continued abd pain TECHNIQUE: After the administration of intravenous contrast, 5 mm thick sections acquired from the diaphragm to the symphysis. 5 mm coronal and sagittal reformats were acquired. For radiation dose reduction, the following was used: automated exposure control, adjustment of mA and/or kV according to patient kleber yang. COMPARISON: [facility], CT, CT ABD PELVIS W CON, 02/07/2017, 1:16. FINDINGS: Image quality: Excellent. ABDOMEN: Lung bases: Lung bases are clear. Heart size is normal. Solid organs: Minimally nodular confirmation of the liver may represent early cirrhosis. Gallbladder wall thickening. No CT evidence of cholelithiasis. No pericholecystic fluid. Stable fatty infiltratio n of the pancreatic head. The spleen, adrenal glands are and right kidney are normal. Stable benign l eft renal cysts. Peritoneum and bowel: No obstruction or perforation. Multiple loops small bowel are fluid-filled with scattered air-fluid levels. Mild stomach wall thickening. Normal appendix. Minimal diverticulosis wi th no evidence of acute diverticulitis. Nodes and vessels: No retroperitoneal or mesenteric adenopathy by size criteria. Aorta and inferior vena cava are normal in size. Miscellaneous: No ventral hernias. PELVIS: Genitourinary: Bladder wall thickness is normal. Miscellaneous: No inguinal hernias or adenopathy. Bones: No suspicious bony lesions. No vertebral body compression fractures. IMPRESSION: 1. Possible acute cholecystitis. If clinical exam cannot evaluate this possibility recommend a right upper quadrant ultrasound. 2. Possible mild adynamic ileus or enteritis. 3. Chronic findings as described above. 4. There are no discrepancies with the preliminary report. Dictated by: Konstantin Logan M.D. on 02/09/2017 at 7:06 Approved by: Konstantin Logan M.D. on 02/09/2017 at 7:13
[2017-02-09] MEDS ORDERED: OXYC1TAB24 PO (08:21)
[2017-02-09 08:32] VITALS: BP 136/90; PULSE 62; RESP 14; O2SAT 97
--- NOTE | 2017-02-11 11:09 | PCM.HPMED ---
Subjective Date of Service Feb 11, 2017 Primary Provider: Admitting Physician: Primary Care Physician: Shahid Nguyen MD Attending Physician: Allergies Coded Allergies: No Known Allergies (Unverified , 02/06/17) PMH Social History Hx Alcohol Use: Yes (hx of ETOH 25 years ago) Hx Substance Use: No Smoking Status: Never Smoker Exam Vital Signs Vital Sign - Last Date Time Temp Pulse Resp B/P Pulse Ox O2 Delivery O2 Flow Rate FiO2 02/09/17 08:32 36.7 62 14 136/90 97 Room Air Intake and Output 02/10/17 02/10/17 02/11/17 Cumulative From/Thru 15:00 23:00 07:00 02/09/17 03:26 - 02/09/17 04:25 Intake Total 1000 ml Balance 1000 ml Intake IV Total 1000 ml Lab and Diagnostics Result Diagram: 02/09/17 0355 02/09/17 0355 Samantha Wiseman DO Feb 11, 2017 11:09
== END 2017-02-09 08:33 | disposition home or self-care (01) ==
LOC: SED 03:21
DX: K52.9 Noninfective gastroenteritis and colitis, unspecified (principal); I10 Essential (primary) hypertension
CPT/HCPCS: 36415; 74177; 80053; 83605; 83690; 83735; 85025; 96361; 96374; 96375; 96376; 99285; J1170; J2405; J7030; Q9967